=== PATIENT | male | born 1955 | race Caucasian/White ===

== ENCOUNTER → 2017-04-15 | Outpatient (CLI) | payer BC ==
[~2017-04-15] MED LIST: GADAVIST IV PRN
--- NOTE | 2017-04-16 13:37 | DIAGNOSTIC IMAGING REPORT ---
PROSTATE MRI COMBO CLINICAL HISTORY: 61 years-old Male presenting with history of ELEVATED PSA. PSA 5.94 ng/mL from 11/02/2014, prior biopsy negative from 2015. TECHNIQUE: Multisequence, multiplanar MR imaging of the prostate was performed before and after the administration of intravenous contrast. IV contrast: 8.5 mL of Gadavist. COMPARISON: None. FINDINGS: Prostate: The prostate measures 6.2 x 3.9 x 4.9 cm (calculated volume 61 mL). Moderate changes of benign prostatic hyperplasia. Precontrast T1 weighted imaging demonstrates no evidence of intrinsic T1 hyperintensity to suggest hemorrhage. Seminal vesicles normal. Few linear and wedgelike foci scattered throughout the peripheral zone without associated diffusion abnormality, likely indicating foci of chronic atrophy or inflammation. No focal lesion in the peripheral or transition zones. Residual central zone noted at the base. Bladder: Bladder wall thickening likely indicating chronic outlet obstruction. Bowel: Nonspecific intramural fatty deposition in the rectum, which could suggest chronic inflammation. Lymph nodes: No lymphadenopathy in the visualized portion of the pelvis. Vasculature: Iliac vessels patent. Osseous structures: The left testicle is retracted into the distal left inguinal canal with associated fluid. No abnormal bone marrow signal intensity. IMPRESSION: 1. No evidence of a suspicious lesion within the prostate. 2. Benign prostatic hyperplasia. Electronically signed by: Ramiro Daniel M.D. 04/16/2017 1:35 PM Dictated Date/Time: 04/16/2017 1:21 PM
== END | disposition home or self-care (01) ==
LOC: C.MRIBC 08:26
PROVIDERS: ATTEND Urology
DX: R97.20 Elevated prostate specific antigen [PSA] (principal); N40.0 Benign prostatic hyperplasia without lower urinary tract symptoms

== ENCOUNTER → 2017-07-15 | Outpatient (CLI) | payer BC | END | disposition home or self-care (01) | LOC: C.PATHSPEC 18:21 | PROVIDERS: ATTEND Urology | DX: R97.20 Elevated prostate specific antigen [PSA] (principal) ==